=== PATIENT | female | born 1955 | race Caucasian/White ===

== ENCOUNTER 2016-12-17 08:27 | Day surgery (SDC) | payer BC ==
[2016-12-14 09:06] VITALS: BMI 28.3
[2016-12-17] MEDS ORDERED: MIDAZOLAM HCL 2 MG/2 ML SINGLE DOSE VIAL ONE (10:03)
[2016-12-17] MEDS ORDERED: LEVOFLOXACIN 500 MG PREMIX BAG IVPB ONE (10:12)
[2016-12-17 11:08] VITALS: TEMP 98.1
[2016-12-17] MEDS ORDERED: oxyCODONE HCL 5 MG TABLET PO PRN ×2 (11:10)
[2016-12-17] MEDS ORDERED: ONDANSETRON 4 MG/2 ML VIAL IVPUSH PRN (11:10)
[2016-12-17] MEDS ORDERED: LACTATED RINGERS SOLUTION 1,000 ML IV SCH (11:15)
[2016-12-17] MEDS ORDERED: ONDANSETRON 4 MG/2 ML VIAL ONE (12:35)
[2016-12-17 14:17] VITALS: BP 158/97; PULSE 82
--- NOTE | 2016-12-17 14:50 | OP ---
Operative Note - Note: Operative Date: 12/17/16 Pre-Operative Diagnosis: right renal stone Operation: right eswl Findings: 5 mm right mid pole and 3 mm lower pole Post-Operative Diagnosis: Same as Pre-op Surgeon: Jamar Sloan Anesthesia: General
--- NOTE | 2016-12-18 10:37 | OP ---
DATE OF OPERATION: 12/17/2016 PREOPERATIVE DIAGNOSIS: Right renal stones. POSTOPERATIVE DIAGNOSIS: Right renal stones. PROCEDURE: Right extracorporeal shock wave lithotripsy. ATTENDING: Ai Ardon MD ANESTHESIA: Fractional. DESCRIPTION OF OPERATION: The patient was brought in the operating room, placed in supine position on the operating room table. Ultrasonography and fluoroscopy were performed. A 5-mm mid-pole and 3-mm lower-pole stone were noted on the right side. Extracorporeal shock wave lithotripsy was performed on the stone with excellent fragmentation of both stones; 500 impulses at 18 joules of power were administered to the mid-pole stone and 1000 impulses at 17 joules of power were administered to the lower-pole stone. Excellent fragmentation of the stone was noted. No complications were noted. The patient tolerated this procedure very well. AI ARDON M.D. /[id number]
== END 2016-12-17 14:30 | disposition home or self-care (01) ==
LOC: JASU-SURG 08:27
PROVIDERS: ATTEND Urology
PROC: 0TF3XZZ Fragmentation in Right Kidney Pelvis, External Approach (ICD-10-PCS; principal; 2016-12-17 10:15)
DX: N20.0 Calculus of kidney (principal)
CPT/HCPCS: 94760

== ENCOUNTER 2023-06-21 11:34 | Inpatient (IN) | payer OTHER, BC ==
[2023-06-21] MEDS ORDERED: LORazepam 1 MG TABLET ONE (13:25)
[2023-06-21] MEDS ORDERED: LIDOCAINE 2.5%/PRILOCAINE 2.5% (5 Gram/TUBE) TP ONE (13:25)
[2023-06-21] MEDS: LORazepam 2 MG TABLET PO ONE (13:30)
[2023-06-21] MEDS ORDERED: ACETAMINOPHEN 325 MG TABLET (FP) PO PRN (13:59)
[2023-06-21] MEDS: LIDOCAINE 2.5%/PRILOCAINE 2.5% (5 Gram/TUBE) TP ONE (14:03)
[2023-06-21 14:40] LABS: BASO % 0.7 % (0-2.0); EOS % 0.8 % (0-4.5); HEMATOCRIT 37.4 % (32.4-45.2); HEMOGLOBIN 12.4 GM/dL (10.7-15.3); LYMPH % 23.9 % (8-40); MCH 28.7 pg (25.7-33.7); MCHC 33.1 g/dl (32.0-36.0); MEAN CELL VOLUME 86.9 fl (80-96); MEAN PLT VOLUME 9.1 fl (7.5-11.1); NEUT % 66.6 % (42.8-82.8); PLATELET COUNT 254 10^3/uL (134-434); RDW 14.6 % (11.6-15.6)
[2023-06-21 14:41] LABS: EPI CELLS 3 /uL (0-25.1); HYALINE CASTS 0 /uL (0-3.1); PH,URINE 5.5 (5.0-8.0); URINE APPEARANCE Error; URINE BACTERIA 9 /uL (0-1359); URINE BILIRUBIN NEGATIVE (NEGATIVE); URINE COLOR YELLOW; URINE GLUCOSE (UA) NEGATIVE (NEGATIVE); URINE KETONE NEGATIVE (NEGATIVE); URINE LEUK ESTERASE NEGATIVE (NEGATIVE); URINE NITRITE NEGATIVE (NEGATIVE); URINE PROTEIN 2+ (NEGATIVE); URINE RBC 19 /uL (0-23.9); URINE UROBILINOGEN 0.2 mg/dL (0.2-1.0); URINE WBC 16 /uL (0-25.8)
[2023-06-21 14:48] LABS: POTASSIUM 5.1 mmol/L (3.5-5.1)
[2023-06-21 14:50] LABS: ALBUMIN 3.8 g/dl (3.4-5.0); BLOOD UREA NITROGEN 50.9 mg/dL (7-18); CALCIUM 9.5 mg/dL (8.5-10.1)
[2023-06-21 14:53] LABS: CREATININE 2.6 mg/dL (0.55-1.3)
[2023-06-21 14:55] LABS: BILIRUBIN,TOTAL 0.3 mg/dL (0.2-1); TOT PROT 7.5 g/dl (6.4-8.2)
[2023-06-21] MEDS ORDERED: MEROPENEM 1 GM VIAL (RESTRICTED TO ID) IVPB ONE (18:03)
[2023-06-21] MEDS ORDERED: metFORMIN HCL 500 MG TABLET (FP) ONE (18:04)
[2023-06-21] MEDS: MEROPENEM 1 GM in DEXTROSE 5%-WATER 100 ML IVPB SCH (18:18)
[2023-06-21] MEDS: metFORMIN HCL 500 MG TABLET (FP) PO SCH (18:19)
[2023-06-21] MEDS: INSULIN ASPART SLIDING SCALE (NOVOLOG) 1 VIAL SQ SCH (18:25)
[2023-06-21] MEDS: HEPARIN NA (PORCINE) 5,000 UNITS/ML 1ML VIAL SQ SCH (22:12)
[2023-06-21] MEDS: SODIUM CHLORIDE 0.45% 1,000 ML IV SCH (22:46)
[2023-06-22 01:14] VITALS: BMI 28.9
[2023-06-22] MEDS ORDERED: LOSARTAN POTASSIUM 50 MG TABLET PO SCH (10:00)
[2023-06-22] MEDS: EZETIMIBE 10 MG TABLET (FP) PO SCH ×2 (10:49→21:50)
[2023-06-22] MEDS: MAGNESIUM OXIDE 400 MG TABLET (FP) PO SCH (14:15)
[2023-06-22] MEDS: ATORVASTATIN CA 20 MG TABLET (FP) PO SCH (21:50)
[2023-06-23] MEDS: VALSARTAN 80 MG TABLET PO SCH (06:25)
[2023-06-23] MEDS: ALLOPURINOL 100 MG TABLET (FP) PO SCH (06:25)
[2023-06-23 08:03] LABS: POTASSIUM 5.4 mmol/L (3.5-5.1)
[2023-06-23 08:05] LABS: BLOOD UREA NITROGEN 47.4 mg/dL (7-18); CALCIUM 9.8 mg/dL (8.5-10.1)
[2023-06-24 09:07] LABS: POTASSIUM 5.8 mmol/L (3.5-5.1)
[2023-06-24 09:10] LABS: CALCIUM 9.9 mg/dL (8.5-10.1)
[2023-06-24 09:11] LABS: BLOOD UREA NITROGEN 47.5 mg/dL (7-18)
[2023-06-24 09:14] LABS: CREATININE 2.1 mg/dL (0.55-1.3)
[2023-06-24] MEDS: SODIUM ZIRCONIUM CYCLOSILICATE (LOKELMA) 5 GM PACKET PO SCH (15:33)
[2023-06-24] MEDS: SODIUM CHLORIDE 0.45% 1,000 ML IV SCH (15:34)
[2023-06-24] MEDS: LACTOBACILLUS ACIDOPHILUS 1 TABLET PO SCH (17:23)
[2023-06-24] MEDS ORDERED: INSULIN (NOVOLOG) ASPART 100 UNITS/ML 10ML VIAL ONE (21:32)
[2023-06-24] MEDS: MICONAZOLE NITRATE 2% VAGINAL CREAM 45 GM TUBE VG SCH (21:47)
[2023-06-24] MEDS: NYSTATIN 100000 UNIT/GM TOPICAL OINTMENT 15 GM TUBE TP SCH (21:47)
[2023-06-24] MEDS: TRIAMCINOLONE ACET 0.1% OINT 15 GM TUBE TP SCH (21:47)
[2023-06-25 06:55] VITALS: BP 127/70; PULSE 78; RESP 20; TEMP 98.1
[2023-06-25] MEDS: ALPRAZolam 0.25 MG TABLET PO PRN (08:19)
== END 2023-06-25 10:40 | disposition home or self-care (01) | DRG 690 ==
LOC: JER 11:34 → JERBED 14:55 → J8W 21:38
PROVIDERS: ADMIT Family Medicine; ATTEND Family Medicine
PROC: 05HY33Z Insertion of Infusion Device into Upper Vein, Percutaneous Approach (ICD-10-PCS; principal; 2023-06-25)
DX: N39.0 Urinary tract infection, site not specified (principal); Z16.12 Extended spectrum beta lactamase (ESBL) resistance; I12.9 Hypertensive chronic kidney disease with stage 1 through stage 4 chronic kidney disease, or unspecified chronic kidney disease; N18.9 Chronic kidney disease, unspecified; E78.5 Hyperlipidemia, unspecified; B96.1 Klebsiella pneumoniae [K. pneumoniae] as the cause of diseases classified elsewhere; E11.9 Type 2 diabetes mellitus without complications; E11.22 Type 2 diabetes mellitus with diabetic chronic kidney disease
CPT/HCPCS: 36415; 36569; 76775-TC; 80048; 80053; 81003; 82962; 83036; 85025; 87081; 87086; 93005; 93010; 99285-25; J1644

== ENCOUNTER 2023-06-25 11:13 | Day surgery (SDC) | payer OTHER, BC ==
[2023-06-25] MEDS: ERTAPENEM SODIUM 0.5 GM in SODIUM CHLORIDE 50 ML IVPB ONE (11:41)
[2023-06-25 11:50] VITALS: BP 122/72; PULSE 87; RESP 18; TEMP 98.4
== END 2023-06-25 12:28 | disposition home or self-care (01) ==
LOC: FINFUSION 11:13 → FM/S 11:14 → FINFUSION 12:28
PROVIDERS: ATTEND Internal Medicine Infectious Disease
DX: N39.0 Urinary tract infection, site not specified (principal)
CPT/HCPCS: 96365

== ENCOUNTER 2023-06-26 11:27 | Day surgery (SDC) | payer OTHER, BC ==
[2023-06-26] MEDS: ERTAPENEM SODIUM 0.5 GM in SODIUM CHLORIDE 50 ML IVPB ONE (12:12)
[2023-06-26 13:04] VITALS: BP 124/62; PULSE 80; RESP 18; TEMP 98.1
[2023-06-26 13:44] LABS: ALBUMIN 4.2 g/dl (3.4-5.0); BILIRUBIN,TOTAL 0.4 mg/dl (0.2-1); CALCIUM 10.4 mg/dl (8.5-10.1); CREATININE 1.9 mg/dl (0.6-1.3); POTASSIUM 5.2 mmol/L (3.5-5.1); TOT PROT 7.3 g/dl (6.4-8.2)
== END 2023-06-26 14:00 | disposition home or self-care (01) ==
LOC: FINFUSION 11:27 → FM/S 11:30 → FINFUSION 14:00
PROVIDERS: ATTEND Internal Medicine Infectious Disease
DX: N39.0 Urinary tract infection, site not specified (principal)
CPT/HCPCS: 36415; 80053; 96365

== ENCOUNTER 2023-06-27 11:13 | Day surgery (SDC) | payer OTHER, BC ==
[2023-06-27 11:36] VITALS: TEMP 98.3
[2023-06-27] MEDS: ERTAPENEM SODIUM 0.5 GM in SODIUM CHLORIDE 50 ML IVPB ONE (11:39)
[2023-06-27 12:15] VITALS: BP 130/68; PULSE 78; RESP 16
== END 2023-06-27 12:13 | disposition home or self-care (01) ==
LOC: FINFUSION 11:13 → FM/S 11:13 → FINFUSION 12:13
PROVIDERS: ATTEND Internal Medicine Infectious Disease
DX: N39.0 Urinary tract infection, site not specified (principal)
CPT/HCPCS: 96365

== ENCOUNTER 2023-06-28 11:25 | Day surgery (SDC) | payer OTHER, BC ==
[2023-06-28] MEDS: ERTAPENEM SODIUM 0.5 GM in SODIUM CHLORIDE 50 ML IVPB ONE (12:00)
[2023-06-28 16:35] VITALS: BP 150/55; PULSE 100; RESP 18; TEMP 98
== END 2023-06-28 12:40 | disposition home or self-care (01) ==
LOC: FINFUSION 11:25 → FM/S 11:26 → FINFUSION 12:40
PROVIDERS: ATTEND Internal Medicine Infectious Disease
DX: N39.0 Urinary tract infection, site not specified (principal); Z16.12 Extended spectrum beta lactamase (ESBL) resistance
CPT/HCPCS: 96365

== ENCOUNTER 2023-06-29 11:16 | Day surgery (SDC) | payer OTHER, BC ==
[2023-06-29] MEDS: ERTAPENEM SODIUM 0.5 GM in SODIUM CHLORIDE 50 ML IVPB SCH (12:00)
[2023-06-29 13:06] VITALS: BP 132/70; PULSE 80; RESP 18; TEMP 98.7
== END 2023-06-29 13:08 | disposition home or self-care (01) ==
LOC: FINFUSION 11:16 → FM/S 11:17 → FINFUSION 13:08
PROVIDERS: ATTEND Internal Medicine Infectious Disease
DX: N39.0 Urinary tract infection, site not specified (principal); Z16.12 Extended spectrum beta lactamase (ESBL) resistance
CPT/HCPCS: 96365

== ENCOUNTER 2023-06-30 11:11 | Day surgery (SDC) | payer OTHER, BC ==
[2023-06-30] MEDS: ERTAPENEM SODIUM 0.5 GM in SODIUM CHLORIDE 50 ML IVPB ONE (11:26)
[2023-06-30 11:39] VITALS: BP 150/72; PULSE 79; RESP 18; TEMP 98.5
== END 2023-06-30 12:02 | disposition home or self-care (01) ==
LOC: FM/S 11:11 → FINFUSION 11:11
PROVIDERS: ATTEND Internal Medicine Infectious Disease
DX: N39.0 Urinary tract infection, site not specified (principal); Z16.12 Extended spectrum beta lactamase (ESBL) resistance
CPT/HCPCS: 96365

== ENCOUNTER 2023-07-01 11:16 | Day surgery (SDC) | payer OTHER, BC ==
[2023-07-01 11:29] VITALS: RESP 18; TEMP 98.2
[2023-07-01] MEDS: ERTAPENEM SODIUM 0.5 GM in SODIUM CHLORIDE 50 ML IVPB ONE (11:37)
[2023-07-01 12:13] VITALS: BP 155/80; PULSE 86
== END 2023-07-01 12:16 | disposition home or self-care (01) ==
LOC: FINFUSION 11:16 → FM/S 11:18 → FINFUSION 12:16
PROVIDERS: ATTEND Internal Medicine Infectious Disease
DX: N39.0 Urinary tract infection, site not specified (principal); Z16.12 Extended spectrum beta lactamase (ESBL) resistance
CPT/HCPCS: 96365

== ENCOUNTER 2023-07-02 11:07 | Day surgery (SDC) | payer OTHER, BC ==
[2023-07-02] MEDS: ERTAPENEM SODIUM 0.5 GM in SODIUM CHLORIDE 50 ML IVPB ONE (11:31)
[2023-07-02 12:23] VITALS: BP 132/65; PULSE 89; RESP 18; TEMP 98.2
== END 2023-07-02 12:24 | disposition home or self-care (01) ==
LOC: FINFUSION 11:07 → FM/S 11:10 → FINFUSION 12:24
PROVIDERS: ATTEND Internal Medicine Infectious Disease
DX: N39.0 Urinary tract infection, site not specified (principal); Z16.12 Extended spectrum beta lactamase (ESBL) resistance
CPT/HCPCS: 96365

== ENCOUNTER 2023-07-03 11:34 | Day surgery (SDC) | payer OTHER, BC ==
[2023-07-03] MEDS: ERTAPENEM SODIUM 0.5 GM in SODIUM CHLORIDE 50 ML IVPB ONE (11:53)
[2023-07-03 12:37] VITALS: BP 121/75; PULSE 78; RESP 16; TEMP 98.5
== END 2023-07-03 12:37 | disposition home or self-care (01) ==
LOC: FINFUSION 11:34 → FM/S 11:36 → FINFUSION 12:37
PROVIDERS: ATTEND Internal Medicine Infectious Disease
DX: N39.0 Urinary tract infection, site not specified (principal); Z16.12 Extended spectrum beta lactamase (ESBL) resistance
CPT/HCPCS: 96365

== ENCOUNTER 2023-07-04 11:10 | Day surgery (SDC) | payer OTHER, BC ==
[2023-07-04] MEDS: ERTAPENEM SODIUM 0.5 GM in SODIUM CHLORIDE 50 ML IVPB ONE (11:42)
[2023-07-04 12:42] VITALS: BP 130/61; PULSE 77; RESP 16; TEMP 98.5
== END 2023-07-04 13:20 | disposition home or self-care (01) ==
LOC: FINFUSION 11:10 → FM/S 11:10 → FINFUSION 13:20
PROVIDERS: ATTEND Internal Medicine Infectious Disease
DX: N39.0 Urinary tract infection, site not specified (principal); Z16.12 Extended spectrum beta lactamase (ESBL) resistance
CPT/HCPCS: 96365